=== PATIENT | female | born 1955 | race Caucasian/White ===

== ENCOUNTER 2018-09-02 17:23 | Emergency (ER) | payer MEDICARE, MEDICAID ==
[~2018-09-02] VITALS: Ht 152.4 cm; Wt 46.3 kg
[2018-09-02] MEDS ORDERED: RIVA10TA PO (17:37)
[2018-09-02] MEDS ORDERED: KETOROLAC TROMETHAMINE 30 MG INJ IM ONE (18:00)
[2018-09-02] MEDS ORDERED: HYDROMORPHONE 1 MG/1 ML DISP.SYRIN IM ONE (18:15)
[2018-09-02] MEDS ORDERED: KETOROLAC TROMETHAMINE 30 MG INJ ONE (18:16)
[2018-09-02] MEDS ORDERED: HYDROMORPHONE 1 MG/1 ML DISP.SYRIN ONE (18:17)
--- NOTE | 2018-09-02 18:27 | NUR ---
PATIENT WAS SEEN BY DR DIAZ FOR C/O BACK PAIN. MEDICATIONS GIVEN ORDERED. FAMILY MEMBER AT BEDSIDE.. FAMILY IS GOING TO DRIVE. DC AND F/U INSTRUCTIONS GIVEN AND EXPLAINED TO PATIENT AND FAMILY WHO STATES SHE UNDERSTANDS ALL INSTRUCTIONS
== END 2018-09-02 18:46 | disposition home or self-care (01) ==
LOC: ER 17:27
DX: G89.11 Acute pain due to trauma (principal); M25.552 Pain in left hip; I48.91 Unspecified atrial fibrillation; Z88.5 Allergy status to narcotic agent; Z88.8 Allergy status to other drugs, medicaments and biological substances; W18.39XA Other fall on same level, initial encounter; Y93.89 Activity, other specified; Y92.89 Other specified places as the place of occurrence of the external cause; Y99.8 Other external cause status
CPT/HCPCS: 72220; 73502; 96372 ×2; 99284; J1170; J1885; A4663

== ENCOUNTER 2023-04-20 12:52 | Emergency (ER) | payer MEDICARE, OTHER ==
[~2023-04-20] VITALS: Ht 149.9 cm; Wt 47.6 kg
[~2023-04-20 12:52] MED LIST: RIVA10TA PO
--- NOTE | 2023-04-20 13:14 | NUR ---
BIB family from home with c/o left leg swelling x few weeks. States PMD advised her to come in to r/o DVT. Patient is alert and oriented x 3, no s/s of any distress noted, family remains at bedside, informed of plan of care, assisted into gown, awaiting ER provider exam.
--- NOTE | 2023-04-20 14:37 | NUR ---
Patient resting in bed, family remains at bedside. Tech at bedside for exam. No change in primary assessment.
--- NOTE | 2023-04-20 15:14 | NUR ---
ER provider spoke with patient, okay for discharge home with family, Patient left before ACI was given.
[2023-04-20 15:16] VITALS: BP 107/52; O2SAT 97
== END 2023-04-20 15:17 | disposition home or self-care (01) ==
LOC: ER 12:52
DX: R60.0 Localized edema (principal); I48.91 Unspecified atrial fibrillation; G43.909 Migraine, unspecified, not intractable, without status migrainosus; Z88.5 Allergy status to narcotic agent; Z88.8 Allergy status to other drugs, medicaments and biological substances; Z90.89 Acquired absence of other organs
CPT/HCPCS: A4663